=== PATIENT | male | born 1980 | race Native Hawaiian/Other Pacific Islander ===

== ENCOUNTER 2017-09-30 07:51 | Day surgery (SDC) | payer OTHER ==
[2017-09-30 08:08] VITALS: BMI 25.8
[2017-09-30] MEDS ORDERED: Lactated Ringer's 1,000 ML IV ONE (09:32)
[2017-09-30] MEDS ORDERED: Midazolam 2 MG/2 ML VIAL ONE (09:37)
[2017-09-30] MEDS ORDERED: Propofol 10 mg/ml Inj (20 ML) ONE (09:37)
[2017-09-30 10:16] VITALS: TEMP 97.1
[2017-09-30 10:24] VITALS: RESP 16
[2017-09-30 11:09] VITALS: BP 115/80; PULSE 87; O2SAT 98
== END 2017-09-30 11:07 | disposition home or self-care (01) ==
LOC: C.ENDO 07:51
PROVIDERS: ATTEND Internal Medicine Gastroenterology
DX: K59.04 Chronic idiopathic constipation (principal); Z79.899 Other long term (current) drug therapy; K52.9 Noninfective gastroenteritis and colitis, unspecified; K62.1 Rectal polyp; K63.3 Ulcer of intestine
CPT/HCPCS: 45380; 45385; 88305; J2250; J2704; J7120

== ENCOUNTER 2018-08-18 08:48 | Day surgery (SDC) | payer OTHER ==
[2018-08-18 10:06] VITALS: O2SAT 100
[2018-08-18] MEDS ORDERED: Propofol 10 mg/ml Inj (20 ML) ONE ×4 (11:53→12:31)
[2018-08-18] MEDS ORDERED: Midazolam 2 MG/2 ML VIAL ONE (11:53)
[2018-08-18] MEDS ORDERED: Simethicone 40 mg/0.6 ml Liquid (30 ml) ONE (12:03)
[2018-08-18 13:49] VITALS: BP 112/79; PULSE 79; RESP 21; TEMP 97.9
== END 2018-08-18 13:50 | disposition home or self-care (01) ==
LOC: C.ENDO 08:48
PROVIDERS: ATTEND Internal Medicine Gastroenterology
DX: K52.9 Noninfective gastroenteritis and colitis, unspecified (principal); K62.1 Rectal polyp